=== PATIENT | male | born 2000 | race Caucasian/White ===

== ENCOUNTER 2021-04-01 12:37 | Emergency (ER) | payer OTHER ==
[~2021-04-01] VITALS: Ht 188 cm; Wt 82.7 kg
[2021-04-01 12:47] VITALS: TEMP 98.4
[2021-04-01 14:04] VITALS: BP 112/67; PULSE 71
== END 2021-04-01 14:16 | disposition home or self-care (01) ==
LOC: COL.ER 12:37
DX: S46.911A Strain of unspecified muscle, fascia and tendon at shoulder and upper arm level, right arm, initial encounter (principal); X50.9XXA Other and unspecified overexertion or strenuous movements or postures, initial encounter; Y93.B9 Activity, other involving muscle strengthening exercises